=== PATIENT | female | born 1940 | race African-American/Black ===

== ENCOUNTER → 2016-11-09 | Outpatient (CLI) | payer MEDICARE ==
--- NOTE | 2016-11-09 15:49 | KCIC ---
PROCEDURE Neck sonogram. HISTORY Right neck lump. TECHNIQUE Sonographic imaging of the neck was performed. COMPARISON None. FINDINGS The right thyroid lobe measures 3.7 x 1.4 x 1.5 cm. The left thyroid lobe measures 3.6 x 1.3 x 1.4 cm. The isthmus measures 4.3 mm. There are multiple colloid cysts within the right thyroid lobe, the largest of which measures 9 mm in maximum dimension. There is a small complex cyst within the left thyroid lobe measuring 3 mm. There is a complex cyst within the isthmus measuring 4 mm. The right common carotid artery underlies the site of palpable concern. There is no suspicious sonographic finding within this location. IMPRESSION 1. Multiple benign-appearing cystic lesions within the thyroid, the largest of which measures 9 mm on the right. No suspicious thyroid lesion is seen and the thyroid is normal in size. 2. No suspicious finding within the right neck at the site of palpable concern. The right common carotid artery underlies this location. Further evaluation with a contrast-enhanced neck CT can be performed if there is concern for a sonographically occult lesion. Electronically signed by: Fadia Baltazar (Nov 09, 2016 15:47:42)
== END | disposition home or self-care (01) ==
LOC: KCIC US 14:52
PROVIDERS: ATTEND Internal Medicine
DX: R22.1 Localized swelling, mass and lump, neck (principal)
CPT/HCPCS: 76536

== ENCOUNTER → 2016-11-29 | Outpatient (CLI) | payer MEDICARE ==
[~2016-11-29] MED LIST: ATOR10TA60 PO; FLUT9.9S NS; FURO-69 PO; IOHEXOL 300 MG/ML 100ML VIAL. IV ONE; POTA10CA PO; TRIA1TAB2 PO
--- NOTE | 2016-11-29 09:52 | KCIC ---
CT soft tissue neck with contrast Indication: Lump right side of the neck. Axial imaging through the soft tissues of the neck was performed after the administration of intravenous contrast. A BB marker was placed at the area of palpable abnormality in the right neck. PQRS STATEMENT One or more of the following individualized dose reduction techniques were utilized for this study: 1.Automated exposure control. 2.Adjustment of the mA and/orkVaccording to patient size. 3.Use of iterative reconstruction technique. The visualized intracranial structures are unremarkable. The posterior nasopharynx is unremarkable. The oropharynx is unremarkable. The parapharyngeal fat planes are preserved. There is a large amount of artifact from the patient's dental hardware. The epiglottis and larynx are unremarkable. The thyroid demonstrates multiple tiny low densities. The submandibular and parotid glands are unremarkable. No definite cervical lymphadenopathy is seen. At the area of the BB marker this corresponds to the right sternocleidomastoid muscle. No underlying mass or fluid collection is identified at this location. The upper lung voss are clear. Impression: Thyroid nodules. CT soft tissue neck is otherwise unremarkable. Electronically signed by: Tyler Whatley MD (Nov 29, 2016 09:51:14)
== END | disposition home or self-care (01) ==
LOC: KCIC CT 08:22
PROVIDERS: ATTEND Internal Medicine
DX: R22.1 Localized swelling, mass and lump, neck (principal)
CPT/HCPCS: 70491; Q9967

== ENCOUNTER → 2017-06-06 | Outpatient (CLI) | payer MEDICARE ==
[~2017-06-06] MED LIST changes: -IOHEXOL 300 MG/ML 100ML VIAL. IV ONE; -POTA10CA PO; +POTASSIUM CHLO10 MEQ PO
[2017-06-06] MEDS: IOHEXOL 300 MG/ML 75 ML VIAL IV ONE (11:56)
--- NOTE | 2017-06-06 14:23 | RAD ---
CT neck Indication: Cervical lymphadenopathy. Technique: CT neck with 70 mL of Omnipaque 300 with multiplanar reformats. Comparison: Previous study from 11/29/2016 Findings: The visualized sections of the brain are within normal limits. Orbits are within normal limits. Mucus retention cyst or polyp is seen within right maxillary sinus. The nasopharynx and hypopharynx are within normal limits. There is a 6 mm low attenuating lesion within right palatine tonsil. The submandibular glands and parotid glands are within normal limits. No cervical enlarged lymph nodes. Multiple stable bilateral low attenuating thyroid nodules. The neck vasculature is patent. Mild bilateral carotid bulb calcifications. Visualized mediastinal structures are within normal limits. Aortic arch calcifications. The rest of the paranasal sinuses and mastoid air cells are clear. Visualized lungs are clear. Multilevel degenerative disc disease in the cervical spine. No suspicious bony lesions. 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 Impression: 1. No cervical adenopathy. 2. Low attenuating lesion (6 mm) in the right palatine tonsil relatively stable from previous study from 11/29/2016. Differential diagnosis includes small tonsillar abscess, aggregated lymphoid tissue or less likely malignancy. Clinically correlate. PQRS Compliance Statement: One or more of the following individualized dose reduction techniques were utilized for this examination: 1. Automated exposure control 2. Adjustment of the mA and/or kV according to patient size 3. Use of iterative reconstruction technique
== END | disposition home or self-care (01) ==
LOC: CT 10:53
PROVIDERS: ATTEND Internal Medicine
DX: M50.30 Other cervical disc degeneration, unspecified cervical region (principal); I10 Essential (primary) hypertension; R59.1 Generalized enlarged lymph nodes
CPT/HCPCS: 70491; Q9967

== ENCOUNTER → 2017-08-22 | Outpatient (CLI) | payer MEDICARE ==
--- NOTE | 2017-08-22 14:48 | KCIC ---
MRI Lumbar Spine without contrast History: Low back pain, right knee and leg pain Technique: Multiplanar, multi sequential noncontrast MR imaging was performed of the lumbar spine. Contrast: None Comparison: None Findings: There is some motion degradation. Lumbar vertebral body stature is preserved. There is grade 1 anterior spondylolisthesis at L4-5. There is negligible posterior subluxation L1 relative to L2. There is advanced degenerative disc disease at L5-S1, to lesser degree at L2-3 and L4-5 and minimally at L3-4 and L1-2. There is degenerative endplate change greatest at L2-3 and L5-S1. Conus terminates at T12-L1. There are anterior annular tears L3-4 and L1-2. There is mild lumbar levoscoliosis. L1-L2: There is broad posterior bulge, superimposed more focal protrusion/contained extrusion in the far left lateral recess on the order of 6 mm AP by 6 mm CC by 6 mm transverse. There is moderate narrowing of the far left lateral recess. There is mild buckling of the ligamentum flavum and facet hypertrophic change. Neural foramina are adequate. L2-L3: There is mild buckling of the ligamentum flavum and and dqky-ae-bovicvxv facet degenerative change greater on the right. There is very minimal disc osteophyte complex and shallow bulge somewhat greater in the far left lateral recess. Spinal canal is overall adequate. The neural foramina are not significantly narrowed. L3-L4: There is mild facet hypertrophic change and buckling of the ligamentum flavum greater on the right. There is minimal disc osteophyte complex and bulge. Spinal canal and foramina are overall adequate. L4-L5: There is moderate facet hypertrophic change and gosa-bi-cyaxxeus buckling of the ligamentum flavum. There is mild partial uncovering of the posterior aspect of the disc due to spondylolisthesis. Spinal canal and neural foramina are overall adequate. L5-S1: There is mild facet hypertrophic change. There is broad posterior disc osteophyte complex. Spinal canal is adequate. There is overall mild narrowing of the left neural foramen, right neural foramen not significantly narrowed. Impression: 1. There is more advanced degenerative disc disease L5-S1, to lesser degree at more superior levels. 2. There is moderate narrowing of the far left lateral recess at L1-2. 3. There is no significant lumbar neural foramina compromise. 4. There is multilevel facet degenerative change. There is grade 1 anterior spondylolisthesis L4-5. Electronically signed by: Denny Snyder MD (08/22/2017 2:45 PM) [facility]
== END | disposition home or self-care (01) ==
LOC: KCIC MRI 13:52
PROVIDERS: ATTEND Orthopaedic Surgery
DX: M43.16 Spondylolisthesis, lumbar region (principal); M51.37 Other intervertebral disc degeneration, lumbosacral region
CPT/HCPCS: 72148

== ENCOUNTER → 2017-12-14 | Outpatient (CLI) | payer MEDICARE ==
[~2017-12-14] MED LIST changes: -ATOR10TA60 PO; +CONTRAST GIVEN MC; -FLUT9.9S NS; -FURO-69 PO; -POTASSIUM CHLO10 MEQ PO; -TRIA1TAB2 PO
[2017-12-14 11:01] LABS: BLOOD UREA NITROGEN 17 mg/dL (7-20)
[2017-12-14 11:01] LABS: CREATININE 0.9 mg/dL (0.6-1.0); GFR 73.1
[2017-12-14] MEDS: IOHEXOL 300 MG/ML 100ML VIAL. IV (11:23)
== END | disposition home or self-care (01) ==
LOC: CT 10:02
DX: D10.4 Benign neoplasm of tonsil (principal)
CPT/HCPCS: 36415; 70491; 82565; 84520; Q9967

== ENCOUNTER 2018-04-11 15:30 | Inpatient (IN) | payer MEDICARE ==
[2018-04-11] MEDS ORDERED: CLINDAMYCIN 600MG PREMIX 50 ML IV (17:30)
[2018-04-11 18:05] LABS: ADD MAN DIFF? NO
[2018-04-11 18:07] LABS: BASO # 0.1 x10^3/uL (0.0-0.2); BASO % 1 % (0-3); EOS # 0.1 x10^3/uL (0.0-0.7); EOS % 2 % (0-3); HEMATOCRIT 39.1 % (36.0-47.0); LYMPH # 1.6 x10^3/uL (1.0-4.8); LYMPH % 17 % (24-48); MEAN CORPUSCULAR HEMOGLOBIN 29 pg (25-35); MEAN CORPUSCULAR HGB CONC 33 g/dL (31-37); MEAN CORPUSCULAR VOLUME 88 fL (79-100); MONO # 0.9 x10^3/uL (0.0-1.1); MONO % 10 % (0-9); NEUT # 6.6 x10^3uL (1.8-7.7); NEUT % 71 % (31-73); PLATELET COUNT 232 x10^3/uL (140-400); RED BLOOD COUNT 4.46 x10^6/uL (3.50-5.40); RED CELL DISTRIBUTION WIDTH 14.2 % (11.5-14.5); WHITE BLOOD COUNT 9.3 x10^3/uL (4.0-11.0)
[2018-04-11 18:18] LABS: ANION GAP 7 (6-14); BLOOD UREA NITROGEN 12 mg/dL (7-20); BUN/CREATININE RATIO 13 (6-20); CALCIUM 8.9 mg/dL (8.5-10.1); CARBON DIOXIDE 27 mmol/L (21-32); CHLORIDE 103 mmol/L (98-107); CREATININE 0.9 mg/dL (0.6-1.0); GFR 73.1; GLUCOSE 98 mg/dL (70-99); POTASSIUM 4.1 mmol/L (3.5-5.1); SODIUM 137 mmol/L (136-145)
[2018-04-11 18:24] LABS: ALBUMIN 3.1 g/dL (3.4-5.0); ALBUMIN/GLOBULIN RATIO 0.7 (1.0-1.7); ALK PHOS 89 U/L (46-116); ALT (SGPT) 23 U/L (14-59); AST (SGOT) 24 U/L (15-37); TOTAL BILIRUBIN 0.4 mg/dL (0.2-1.0); TOTAL PROTEIN 7.5 g/dL (6.4-8.2); URIC ACID 4.3 mg/dL (2.6-6.0)
[2018-04-11 19:11] LABS: SEDIMENTATION RATE 42 (0-25)
[2018-04-11] MEDS: CLINDAMYCIN 600MG PREMIX 50 ML IV (21:13)
[2018-04-12] MEDS: HYDROcodone/APAP 5/325MG 1 TAB TABLET PO (01:03)
[2018-04-12] MEDS: CLINDAMYCIN 600MG PREMIX 50 ML IV ×3 (05:07→22:22)
[2018-04-12] MEDS ORDERED: ACETAMINOPHEN 325 MG TABLET. PO (09:15)
[2018-04-12] MEDS: ENOXAPARIN 40 MG/0.4 ML SYRINGE. SQ (12:00)
[2018-04-12] MEDS ORDERED: TRIAMCINOLONE ACETONIDE 0.1% TOPICAL OINTMENT 15GM TUBE. TP (17:00)
[2018-04-12] MEDS ORDERED: BUTALB/APAP/CAFEIN 50/325/40MG TABLET. PO ×2 (17:15)
[2018-04-12] MEDS: TRIAMTERENE/HCTZ 37.5/25MG TABLET. PO (18:22)
[2018-04-12] MEDS: POTASSIUM CHLORIDE 10 MEQ TABLET.ER. PO (18:22)
[2018-04-12] MEDS: ASCORBIC ACID 500 MG TABLET PO (18:22)
[2018-04-12] MEDS: MULTIVITAMIN with MINERAL TABLET. PO (18:22)
[2018-04-12] MEDS: FLUTICASONE 50MCG/NASAL SPRAY 16GM BOTTLE. NS (18:23)
[2018-04-12] MEDS: LACTOBACILLUS RHAMNOSUS GG 1 CAPSULE. PO (21:15)
[2018-04-13 06:19] LABS: CHOLESTEROL 173 mg/dL (0-200); HDLC 44 mg/dL (40-60); LDLC 117 mg/dL (0-100); NON-HDL CHOLESTEROL 129 mg/dL (0-129); TRIGLYCERIDES 58 mg/dL (0-150); VLDLC 12 mg/dL (0-40)
[2018-04-13 06:20] LABS: CHOLESTEROL/HDL RATIO 3.9
[2018-04-13 06:27] LABS: THYROID STIM HORMONE (TSH) 2.583 uIU/mL (0.358-3.74)
[2018-04-13] MEDS: CLINDAMYCIN 600MG PREMIX 50 ML IV (06:30)
[2018-04-13] MEDS: POTASSIUM CHLORIDE 10 MEQ TABLET.ER. PO (08:35)
[2018-04-13] MEDS: LACTOBACILLUS RHAMNOSUS GG 1 CAPSULE. PO (08:35)
[2018-04-13] MEDS: ASCORBIC ACID 500 MG TABLET PO (08:35)
[2018-04-13] MEDS: TRIAMTERENE/HCTZ 37.5/25MG TABLET. PO (08:35)
[2018-04-13] MEDS: FLUTICASONE 50MCG/NASAL SPRAY 16GM BOTTLE. NS (08:36)
[2018-04-13] MEDS: MULTIVITAMIN with MINERAL TABLET. PO (08:36)
[2018-04-13] MEDS ORDERED: FLUTICASONE 50MCG/NASAL SPRAY 16GM BOTTLE. NS (09:00)
[2018-04-13] MEDS ORDERED: MULTIVITAMIN with MINERAL TABLET. PO (09:00)
[2018-04-13] MEDS ORDERED: ASCORBIC ACID 500 MG TABLET PO (09:00)
[2018-04-13] MEDS: ENOXAPARIN 40 MG/0.4 ML SYRINGE. SQ (11:56)
== END 2018-04-13 13:58 | disposition home or self-care (01) | DRG 603 ==
LOC: 5 SOUTH 15:30
DX: L03.116 Cellulitis of left lower limb (principal); I10 Essential (primary) hypertension; E78.5 Hyperlipidemia, unspecified; M19.90 Unspecified osteoarthritis, unspecified site; M10.9 Gout, unspecified; Z96.652 Presence of left artificial knee joint; Z79.899 Other long term (current) drug therapy
CPT/HCPCS: 36415; 73600; 73620; 73721; 80053; 80061; 84443; 84550; 85025; 85651; 93970; J3490

== ENCOUNTER 2018-06-10 11:40 | Emergency (ER) | payer MEDICARE ==
[~2018-06-10] VITALS: Ht 170.2 cm; Wt 70.3 kg
[~2018-06-10 11:40] MED LIST changes: +ASCO500C9 PO; +ATOR10TA60 PO; +BUTA1CAP57 PO; +CLIN300C8 PO; -CONTRAST GIVEN MC; +FLUT16SP NS; +FLUT9.9S NS; +FURO-69 PO; +MULT1TAB52 PO; +POTA10TA12 PO; +TRIA15OI TP; +TRIA1TAB2 PO
[2018-06-10] MEDS ORDERED: LIDOCAINE WITH 8.4% SOD BICARB 3 ML DISP.SYRIN. INJ ONE (12:00)
[2018-06-10] MEDS ORDERED: DIPHTH,PERTUSS(ACELL),TET TOX 0.5 ML DISP.SYRIN. VAX IM ONE (12:00)
--- NOTE | 2018-06-10 12:14 | PHYS DOC ---
Adult General Chief Complaint Chief Complaint: MECHANICAL FALL HPI HPI Patient is a 77 year old female who presents to be evaluated status post falling. Patient states she was walking on uneven surface of her driveway by to get the newspaper when she slipped and fell. Patient denies any loss of consciousness. She is complaining of mild pain to her head. She states she is on a baby aspirin every day. Denies any neck pain or back pain. Review of Systems Review of Systems Constitutional: Denies fever or chills [] Eyes: Denies change in visual acuity, redness, or eye pain [] HENT: Denies nasal congestion or sore throat [] Respiratory: Denies cough or shortness of breath [] Cardiovascular: No additional information not addressed in HPI [] GI: Denies abdominal pain, nausea, vomiting, bloody stools or diarrhea [] : Denies dysuria or hematuria [] Musculoskeletal: Denies back pain or joint pain [] Integument: Reports laceration to the right lateral eye. Neurologic: Reports head pain, denies focal weakness or sensory changes [] All other systems were reviewed and found to be within normal limits, except as documented in this note. Current Medications Current Medications Current Medications Medications (Trade) Dose Ordered Sig/[place] Start Time Stop Time Status Last Admin Dose Admin Diphtheria/ Tetanus/Acell Pertussis (Boostrix) 0.5 ml ONCE ONCE 06/10/18 12:00 06/10/18 12:01 DC 06/10/18 12:48 0.5 ML Lidocaine/Sodium Bicarbonate (Buffered Lidocaine 1%) 3 ml 1X ONCE 06/10/18 12:00 06/10/18 12:01 DC 06/10/18 12:51 3 ML Allergies Allergies Allergies Coded Allergies Type Severity Reaction Last Updated Verified codeine Allergy Intermediate HIVES 06/10/18 Yes Physical Exam Physical Exam Constitutional: Well developed, well nourished, no acute distress, non-toxic appearance. [] HENT: Normocephalic, atraumatic, bilateral external ears normal, oropharynx moist, no oral exudates, nose normal. [] Eyes: PERRLA, EOMI, conjunctiva normal, no discharge. [] Neck: Normal range of motion, no tenderness, supple, no stridor. [] Cardiovascular:Heart rate regular rhythm, no murmur [] Lungs & Thorax: Bilateral breath sounds clear to auscultation [] Abdomen: Bowel sounds normal, soft, no tenderness, no masses, no pulsatile masses. [] Skin: Warm, dry, abrasions noted to the right forehead, a tiny approximately 1 cm laceration noted on the right lateral eye skin fold with some soft tissue swelling around the right eyelid Back: No tenderness, no CVA tenderness. [] Extremities: No tenderness, no cyanosis, no clubbing, ROM intact, no edema. [] Neurologic: Alert and oriented X 3, normal motor function, normal sensory function, no focal deficits noted. Cranial nerves II through XII intact Psychologic: Affect normal, judgement normal, mood normal. [] Current Patient Data Vital Signs Vital Signs Date Time Temp Pulse Resp B/P (MAP) Pulse Ox O2 Delivery O2 Flow Rate FiO2 06/10/18 13:30 65 20 99 06/10/18 11:40 98.4 130/72 (91) Room Air 98.4 EKG EKG [] Radiology/Procedures Radiology/Procedures []PROCEDURE: CT HEAD WO CONTRAST EXAM: CT HEAD WITHOUT CONTRAST. HISTORY: Fall with head and facial trauma. TECHNIQUE: Computed tomography of the head was performed without intravenous contrast. COMPARISON: 04/20/2012. FINDINGS: There is no intracranial hemorrhage. Hypoattenuation within the periventricular white matter indicates mild chronic microangiopathic change. Prominence of the lateral ventricles and hemispheric sulci indicates moderate atrophy. The visualized paranasal sinuses appear clear. There are changes of bilateral cataract surgery. There is soft tissue swelling along the lateral aspect of the right orbit and cheek. There is no evidence of intraorbital injury. The temporal bones are unremarkable. The calvarium reveals no suspicious lesions. IMPRESSION: 1. No acute intracranial findings. Soft tissue swelling right cheek and eyelids. 2. Moderate atrophy and mild chronic microangiopathic white matter change. *One or more of the following individualized dose reduction techniques were utilized for this examination: 1. Automated exposure control. 2. Adjustment of the mA and/or kV according to patient size. 3. Use of iterative reconstruction technique. Electronically signed by: Nicolette Barth MD (06/10/2018 12:38 PM) [facility] DICTATED and SIGNED BY: STEPHEN BARTH MD DATE: 06/10/18 1234 Laceration/Wound Repair Wound Location: Right upper eyelid Wound's Depth, Shape: Vertical Wound Length (cm): approx. 1 cm Wound Explored: clean Irrigated w/ Saline (ccs): 30 Betadine Prep?: y Anesthesia: 0.5 cc of buffered lidocaine Wound Repaired With: 6.0 dissolvable gut Suture Type: 3 interrupted sutures Progress : Wound was left open to air Course & Med Decision Making Course & Med Decision Making Pertinent Labs and Imaging studies reviewed. (See chart for details) This is a 77-year-old female patient presenting to the ED today to be evaluated status post falling. Patient has a laceration approximately 1 cm long on the lateral aspect of the right eye skin fold. Laceration was repaired by me as noted in procedures. Tetanus updated. CT of the head is negative. Patient was discharged to home, wound care instructions and return precautions provided. Follow-up with PCP next week. Dragon Disclaimer Dragon Disclaimer This electronic medical record was generated, in whole or in part, using a voice recognition dictation system. Departure Departure Impression: Primary Impression: Fall from standing Additional Impressions: Forehead contusion Facial laceration Disposition: 01 HOME, SELF-CARE Condition: STABLE Referrals: JOSE WU MD (PCP) Follow-up with your doctor in 1-2 weeks Patient Instructions: Contusion, [id number]-Mque, Facial Laceration, Yevi-ra-Smrb , Fall Prevention and Home Safety Additional Instructions: You were evaluated in the emergency room after falling. Your CT of the head is negative for any acute findings. Your laceration was closed with dissolvable sutures. Keep the laceration site clean and dry. You can apply Neosporin over the laceration site twice a 41 week. Monitor the area for any worsening condition including but not limited to increased redness, warmth, yellow drainage and come back to the ED if they occur or see your doctor. Problem Qualifiers Primary Impression: Fall from standing Encounter type: initial encounter Qualified Codes: W19.XXXA - Unspecified fall, initial encounter Additional Impressions: Forehead contusion Encounter type: initial encounter Qualified Codes: S00.83XA - Contusion of other part of head, initial encounter Facial laceration Encounter type: initial encounter Qualified Codes: S01.81XA - Laceration without foreign body of other part of head, initial encounter LORNE OMER HOUSECLEANER Jun 10, 2018 12:14
--- NOTE | 2018-06-10 12:41 | RAD ---
EXAM: CT HEAD WITHOUT CONTRAST. HISTORY: Fall with head and facial trauma. TECHNIQUE: Computed tomography of the head was performed without intravenous contrast. COMPARISON: 04/20/2012. FINDINGS: There is no intracranial hemorrhage. Hypoattenuation within the periventricular white matter indicates mild chronic microangiopathic change. Prominence of the lateral ventricles and hemispheric sulci indicates moderate atrophy. The visualized paranasal sinuses appear clear. There are changes of bilateral cataract surgery. There is soft tissue swelling along the lateral aspect of the right orbit and cheek. There is no evidence of intraorbital injury. The temporal bones are unremarkable. The calvarium reveals no suspicious lesions. IMPRESSION: 1. No acute intracranial findings. Soft tissue swelling right cheek and eyelids. 2. Moderate atrophy and mild chronic microangiopathic white matter change. *One or more of the following individualized dose reduction techniques were utilized for this examination: 1. Automated exposure control. 2. Adjustment of the mA and/or kV according to patient size. 3. Use of iterative reconstruction technique. Electronically signed by: Nicolette Barth MD (06/10/2018 12:38 PM) [facility]
[2018-06-10 13:30] VITALS: BP 180/79
== END 2018-06-10 13:35 | disposition home or self-care (01) ==
LOC: ER 11:40
DX: S01.111A Laceration without foreign body of right eyelid and periocular area, initial encounter (principal); S01.81XA Laceration without foreign body of other part of head, initial encounter; Z88.5 Allergy status to narcotic agent; W01.0XXA Fall on same level from slipping, tripping and stumbling without subsequent striking against object, initial encounter; Y93.89 Activity, other specified; Y92.89 Other specified places as the place of occurrence of the external cause; Y99.8 Other external cause status
CPT/HCPCS: 12011; 70450; 90471; 90715; 99284-25

== ENCOUNTER → 2018-06-20 | Outpatient (CLI) | payer MEDICARE ==
[2018-06-10 13:30] VITALS: BP 180/79
--- NOTE | 2018-06-20 11:04 | CARD ---
MR#: [id number] Date of Study: 06/20/2018 Ordering Physician: JASKARAN MARTINEZ, Referring Physician: JASKARAN MARTINEZ Tech: Rosalina Decker [facility] APPROVED REPORT EXAM: Two-dimensional and M-mode echocardiogram with Doppler and color Doppler. Other Information Quality : Good Rhythm : NSR INDICATION Edema 2D DIMENSIONS RVDd2.4 (2.9-3.5cm)Left Atrium(2D)3.6 (1.6-4.0cm) IVSd1.1 (0.7-1.1cm)Aortic Root(2D)2.8 (2.0-3.7cm) LVDd3.6 (3.9-5.9cm)LVOT Diameter1.8 (1.8-2.4cm) PWd0.8 (0.7-1.1cm)IVSs1.2 (0.8-1.2cm) LVDs2.1 (2.5-4.0cm)FS (%) 41.9 % PWs0.9 (0.8-1.2cm)SV39.3 ml LVEF(%)73.9 (>50%) M-Mode DIMENSIONS Left Atrium(MM)3.80 (2.5-4.0cm)Aortic Root2.64 (2.2-3.7cm) Aortic Valve AoV Peak Otis.123.4cm/sAoV VTI23.6cm AO Peak GR.6.1mmHgLVOT Peak Otis.101.4cm/s LVOT VTI 22.59cmAO Mean GR.3mmHg VIVIEN (VMAX)1.35qd4VDG (VTI)2.50cm2 Mitral Valve MV E Lzufuovr01.7cm/sMV DECEL [id number] MV A Tdhoydmn42.8cm/sMV KJP46pp E/A Ratio0.7MVA (PHT)2.71cm2 TDI E/Lateral E'7.4E/Medial E'10.8 Tricuspid Valve TR P. Gqewkvhl818cl/sRAP [id number] TR Peak Gr.14snPyWIPN84zkVv Pulmonary Vein S1 Zmpfoccb87.9cm/sD2 Raxktjng12.5cm/s PVa [id number] LEFT VENTRICLE The left ventricle is normal size. There is normal left ventricular wall thickness. The left ventricu lar systolic function is normal. The Ejection Fraction is 65-70%. There is normal LV segmental wall m otion. Transmitral Doppler flow pattern is Grade I-abnormal relaxation pattern. RIGHT VENTRICLE The right ventricle is normal size. There is normal right ventricular wall thickness. The right ventr icular systolic function is normal. ATRIA The left atrium size is normal. The right atrium size is normal. The interatrial septum is intact wit h no evidence for an atrial septal defect or patent foramen ovale as noted on 2-D or Doppler imaging. AORTIC VALVE The aortic valve is thickened but opens well. The aortic valve is trileaflet. Doppler and Color Flow revealed no significant aortic regurgitation. There is no significant aortic valvular stenosis. MITRAL VALVE The mitral valve is normal in structure and function. There is no evidence of mitral valve prolapse. There is no mitral valve stenosis. Doppler and Color Flow revealed no mitral valve regurgitation note d. TRICUSPID VALVE The tricuspid valve is normal in structure and function. Doppler and Color Flow revealed trace tricus pid regurgitation. The PA pressure was estimated at 17 mmHg. There is no tricuspid valve prolapse or vegetation. There is no tricuspid valve stenosis. PULMONIC VALVE The pulmonary valve is normal in structure and function. Doppler and Color Flow revealed trace pulmon ic valvular regurgitation. There is no pulmonic valvular stenosis. GREAT VESSELS The aortic root is normal in size. The ascending aorta is normal in size. PERICARDIAL EFFUSION There is no evidence of significant pericardial effusion. Critical Notification Critical Value: No <Conclusion> The left ventricular systolic function is normal. The Ejection Fraction is 65-70%. There is normal LV segmental wall motion. Transmitral Doppler flow pattern is Grade I-abnormal relaxation pattern. Doppler and Color Flow revealed trace tricuspid regurgitation. The PA pressure was estimated at 17 mmHg. There is no evidence of significant pericardial effusion. Signed by : Jaskaran Martinez, Electronically Approved : 06/20/2018 11:02:50
--- NOTE | 2018-06-21 04:55 | RAD ---
MR#: [id number] Date of Study: 06/20/2018 Ordering Physician: JASKARAN OROURKE, Referring Physician: JASKARAN OROURKE, Tech: DENAE Fleming, RDMS, RTR APPROVED REPORT Patient Location : OUT-PATIENT Indications Lower Extremity Pain : Findings Grayscale images of the bilateral saphenofemoral junctions on limited imaging do not reveal any evide nce of thrombus. The right great saphenous vein measures 4.9 mm and does not show any evidence of reflux. The left gre at saphenous vein measures 4.8 mm and does not show any evidence of reflux. The bilateral lesser saphenous veins do not show any evidence of reflux. 2 incidental groin lymph nodes are noted in the left groin area with largest measuring 3.0 x 0.9 x 1. 6 cm Critical Notification Critical Value: No <Conclusion> 1. Negative for reflux in the bilateral greater and lesser saphenous veins 2. Incidental finding of two large (> 1cm) lymph nodes - likely inflammatory. Recommend clinical kymberly elation. Signed by : Zach Noriega, Electronically Approved : 06/21/2018 04:54:35
--- NOTE | 2018-06-21 04:57 | RAD ---
MR#: [id number] Date of Study: 06/20/2018 Ordering Physician: JASKARAN OROURKE, Referring Physician: JASKARAN OROURKE, Tech: DENAE Fleming, RDMS, RTR APPROVED REPORT Patient Location: OUT-PATIENT Indications Rest Pain: Risk Factors Hypertension VELOCITY AND DOPPLER WAVEFORM ANALYSIS RIGHT cm/secWaveformSeverity LEFT cm/secWaveform Severity pCFA 135.7BiphasicpCFA 113.4Biphasic Prof Fem Art. 90.9Prof Fem Art. 93.4 Fem Art Prox. 90.1BiphasicFem Art Prox. 104.1Biphasic Fem Art Mid. 95.9BiphasicFem Art Mid. 91.7Triphasic Fem Art Dist. 75.2BiphasicFem Art Dist. 70.1Triphasic Pop Art(AK) Pop Art(AK) Pop Art(Fossa) 70.1BiphasicPop Art(AK) 97.0Triphasic BLUE CRABBER Dist. 60.4BiphasicPTA Dist. 93.8Monophasic Per Art Dist.64.3BiphasicPer Art Dist.79.8Monophasic JOSÉ MIGULE Dist. 56.8BiphasicATA Dist. 59.6Monophasic DPA 71BiphasicDPA 41Monophasic Findings Grayscale images of the bilateral lower extremity arterial vessels reveal moderate diffuse atheroscle rotic plaque. On the right side spectral waveforms and color Doppler do not demonstrate any focal stenosis. There a re mostly biphasic waveforms throughout the arterial tree. On the left side there are mostly biphasic waveforms in the common femoral to the popliteal segment w ith normal velocities. Velocities below the knee on the left side are within normal limits but in a m onophasic wave pattern suggestive of diffuse small vessel disease but no focal high-grade stenosis. Critical Notification Critical Value: No <Conclusion> 1. No focal high-grade stenosis is identified in the bilateral lower extremity arterial vessels. 2. Bilateral three-vessel runoff below the knee with adequate velocities. Signed by : Zach Noriega, Electronically Approved : 06/21/2018 04:57:22
== END | disposition home or self-care (01) ==
LOC: ECHO 10:13
PROVIDERS: ATTEND Internal Medicine Cardiovascular Disease
DX: I70.293 Other atherosclerosis of native arteries of extremities, bilateral legs (principal); I10 Essential (primary) hypertension
CPT/HCPCS: 93306; 93925; 93970

== ENCOUNTER 2018-09-18 02:00 | Emergency (ER) | payer MEDICARE ==
[~2018-09-18] VITALS: Ht 167.6 cm; Wt 68.5 kg
[2018-09-18] MEDS ORDERED: cloNIDine HCL 0.1 MG TABLET PO ONE (02:15)
[2018-09-18 02:16] LABS: BASO # 0.1 x10^3/uL (0.0-0.2); BASO % 1 % (0-3); EOS # 0.1 x10^3/uL (0.0-0.7); EOS % 2 % (0-3); HEMATOCRIT 43.3 % (36.0-47.0); HEMOGLOBIN 14.8 g/dL (12.0-15.5); LYMPH # 2.1 x10^3/uL (1.0-4.8); LYMPH % 29 % (24-48); MEAN CORPUSCULAR HEMOGLOBIN 30 pg (25-35); MEAN CORPUSCULAR HGB CONC 34 g/dL (31-37); MEAN CORPUSCULAR VOLUME 88 fL (79-100); MONO # 0.7 x10^3/uL (0.0-1.1); MONO % 10 % (0-9); NEUT # 4.2 x10^3uL (1.8-7.7); NEUT % 58 % (31-73); PLATELET COUNT 198 x10^3/uL (140-400); RED CELL DISTRIBUTION WIDTH 14.3 % (11.5-14.5); WHITE BLOOD COUNT 7.3 x10^3/uL (4.0-11.0)
[2018-09-18 02:25] LABS: CALCIUM 9.3 mg/dL (8.5-10.1); GFR 64.7; POTASSIUM 3.9 mmol/L (3.5-5.1)
[2018-09-18 02:31] LABS: ALBUMIN 3.5 g/dL (3.4-5.0); ALBUMIN/GLOBULIN RATIO 0.8 (1.0-1.7); TOTAL BILIRUBIN 0.3 mg/dL (0.2-1.0); TOTAL PROTEIN 7.7 g/dL (6.4-8.2)
[2018-09-18 03:23] LABS: BILIRUBIN,URINE NEGATIVE (NEG); CLARITY,URINE CLEAR; COLOR,URINE YELLOW; PH,URINE 7.5
[2018-09-18 03:24] LABS: BACTERIA,URINE 0 /HPF (0-FEW); NITRITE,URINE NEGATIVE (NEG); PROTEIN,URINE NEGATIVE (NEG-TRACE); RBC,URINE 0 /HPF (0-2); SQUAMOUS EPITHELIAL CELL,UR FEW /LPF; UROBILINOGEN,URINE 0.2 mg/dL (0.2 mg/dL); WBC,URINE OCC /HPF (0-4)
--- NOTE | 2018-09-18 03:28 | RAD ---
INDICATION: severe headache; hx High blood pressure COMPARISON: June 10, 2018 TECHNIQUE: Axial CT images obtained through the head without intravenous contrast. One or more of the following individualized dose reduction techniques were utilized for this examination: 1. Automated exposure control; 2. Adjustment of the mA and/or kV according to patient size; 3. Use of iterative reconstruction technique. FINDINGS: No intracranial hemorrhage. No midline shift. Basal cisterns patents. Ventricles and sulci are globally prominent. No acute osseous abnormality. Orbits and paranasal sinuses unremarkable. Scattered foci of low attenuation within the white matter. IMPRESSION: 1. No acute intracranial hemorrhage. 2. Scattered regions of low attenuation within the white matter. Non-specific in nature but frequently secondary to chronic small vessel ischemic disease. 3. Prominence of ventricles and sulci which is frequently secondary to age related volume loss. Electronically signed by: Fer Bowie MD (09/18/2018 3:23 AM) [facility]
--- NOTE | 2018-09-18 03:49 | PHYS DOC ---
Past Medical History Past Medical History: Hypertension Past Surgical History: Hysterectomy, Knee Replacement Additional Past Surgical Histo: left knee Alcohol Use: None Drug Use: None Adult General Chief Complaint Chief Complaint: DIZZY/LIGHT HEADED HPI HPI Patient is a 77-year-old female who presents with complaint of pressure in her head and dizziness. When asked to describe the pressure, she states it feels like her head is going to explode but states that there is no actual pain. She states that he just feels like pressure. She states that the dizziness that started earlier in the evening and she took a meclizine for but states that she still has some dizziness. Patient also has elevated blood pressure and states that she did not take her blood pressure medication tonight. She denies any chest pain or shortness of breath. She denies any sinus pain or drainage. She denies any fever. Patient states that symptoms of dizziness are worsened when she stands. Review of Systems Review of Systems Constitutional: Denies fever or chills [] Eyes: Denies change in visual acuity, redness, or eye pain [] HENT: Denies nasal congestion or sore throat [] Respiratory: Denies cough or shortness of breath [] Cardiovascular: No additional information not addressed in HPI [] GI: Denies abdominal pain, nausea, vomiting or diarrhea [] Neurologic: Complains of head pressure/pain without focal weakness or sensory changes [] All other systems were reviewed and found to be within normal limits, except as documented in this note. Current Medications Current Medications Current Medications Medications (Trade) Dose Ordered Sig/[place] Start Time Stop Time Status Last Admin Dose Admin Clonidine HCl (Catapres) 0.2 mg 1X ONCE 09/18/18 02:15 09/18/18 02:16 DC 09/18/18 02:18 0.2 MG Ketorolac Tromethamine (Toradol 15mg Vial) 15 mg 1X ONCE 09/18/18 04:00 09/18/18 04:04 DC 09/18/18 04:20 15 MG Lorazepam (Ativan) 0.5 mg 1X ONCE 09/18/18 04:00 09/18/18 04:04 DC 09/18/18 04:20 0.5 MG Meclizine HCl (Antivert) 25 mg 1X ONCE 09/18/18 04:00 09/18/18 04:04 DC 09/18/18 04:19 25 MG Ondansetron HCl (Zofran) 4 mg 1X ONCE 09/18/18 04:00 09/18/18 04:04 DC 09/18/18 04:20 4 MG Allergies Allergies Allergies Coded Allergies Type Severity Reaction Last Updated Verified codeine Allergy Intermediate HIVES 06/10/18 Yes Physical Exam Physical Exam Constitutional: Well developed, well nourished, no acute distress, non-toxic appearance. [] HENT: Normocephalic, atraumatic, bilateral external ears normal, oropharynx moist, no oral exudates, nose normal. [] Eyes: PERRLA, EOMI, conjunctiva normal, no discharge. [] Neck: Normal range of motion, no tenderness, supple, no stridor. [] Cardiovascular: Regular rate and rhythm. [] Lungs & Thorax: Bilateral breath sounds clear to auscultation [] Abdomen: Bowel sounds normal, soft, no tenderness. [] Skin: Warm, dry, no erythema, no rash. [] Extremities: No tenderness, no cyanosis, no clubbing, ROM intact, no edema. [] Neurologic: Awake and alert, no focal deficits noted. [] Current Patient Data Vital Signs Vital Signs Date Time Temp Pulse Resp B/P (MAP) Pulse Ox O2 Delivery O2 Flow Rate FiO2 09/18/18 04:37 55 18 99 09/18/18 02:18 178/79 09/18/18 02:00 97.4 Room Air 97.4 Lab Values Laboratory Tests Test 09/18/18 02:05 09/18/18 03:00 White Blood Count 7.3 x10^3/uL (4.0-11.0) Red Blood Count 4.90 x10^6/uL (3.50-5.40) Hemoglobin 14.8 g/dL (12.0-15.5) Hematocrit 43.3 % (36.0-47.0) Mean Corpuscular Volume 88 fL (79-100) Mean Corpuscular Hemoglobin 30 pg (25-35) Mean Corpuscular Hemoglobin Concent 34 g/dL (31-37) Red Cell Distribution Width 14.3 % (11.5-14.5) Platelet Count 198 x10^3/uL (140-400) Neutrophils (%) (Auto) 58 % (31-73) Lymphocytes (%) (Auto) 29 % (24-48) Monocytes (%) (Auto) 10 % (0-9) H Eosinophils (%) (Auto) 2 % (0-3) Basophils (%) (Auto) 1 % (0-3) Neutrophils # (Auto) 4.2 x10^3uL (1.8-7.7) Lymphocytes # (Auto) 2.1 x10^3/uL (1.0-4.8) Monocytes # (Auto) 0.7 x10^3/uL (0.0-1.1) Eosinophils # (Auto) 0.1 x10^3/uL (0.0-0.7) Basophils # (Auto) 0.1 x10^3/uL (0.0-0.2) Sodium Level 140 mmol/L (136-145) Potassium Level 3.9 mmol/L (3.5-5.1) Chloride Level 104 mmol/L (98-107) Carbon Dioxide Level 28 mmol/L (21-32) Anion Gap 8 (6-14) Blood Urea Nitrogen 14 mg/dL (7-20) Creatinine 1.0 mg/dL (0.6-1.0) Estimated GFR (Cockcroft-Gault) 64.7 BUN/Creatinine Ratio 14 (6-20) Glucose Level 98 mg/dL (70-99) Calcium Level 9.3 mg/dL (8.5-10.1) Magnesium Level 2.0 mg/dL (1.8-2.4) Total Bilirubin 0.3 mg/dL (0.2-1.0) Aspartate Amino Transferase (AST) 23 U/L (15-37) Alanine Aminotransferase (ALT) 23 U/L (14-59) Alkaline Phosphatase 82 U/L (46-116) Total Protein 7.7 g/dL (6.4-8.2) Albumin 3.5 g/dL (3.4-5.0) Albumin/Globulin Ratio 0.8 (1.0-1.7) L Urine Collection Type Unknown Urine Color Yellow Urine Clarity Clear Urine pH 7.5 Urine Specific [place] 1.015 Urine Protein Negative mg/dL (NEG-TRACE) Urine Glucose (UA) Negative mg/dL (NEG) Urine Ketones (Stick) Negative mg/dL (NEG) Urine Blood Negative (NEG) Urine Nitrite Negative (NEG) Urine Bilirubin Negative (NEG) Urine Urobilinogen Dipstick 0.2 mg/dL (0.2 mg/dL) Urine Leukocyte Esterase Trace (NEG) Urine RBC 0 /HPF (0-2) Urine WBC Occ /HPF (0-4) Urine Squamous Epithelial Cells Few /LPF Urine Bacteria 0 /HPF (0-FEW) Urine Mucus Mod /LPF Laboratory Tests 09/18/18 02:05 Laboratory Tests 09/18/18 02:05 EKG EKG [] Interpretation Time: EKG demonstrates normal sinus rhythm with rate of 60. Radiology/Procedures Radiology/Procedures [] Impressions: PROCEDURE: CT HEAD WO CONTRAST INDICATION: severe headache; hx High blood pressure COMPARISON: June 10, 2018 TECHNIQUE: Axial CT images obtained through the head without intravenous contrast. One or more of the following individualized dose reduction techniques were utilized for this examination: 1. Automated exposure control; 2. Adjustment of the mA and/or kV according to patient size; 3. Use of iterative reconstruction technique. FINDINGS: No intracranial hemorrhage. No midline shift. Basal cisterns patents. Ventricles and sulci are globally prominent. No acute osseous abnormality. Orbits and paranasal sinuses unremarkable. Scattered foci of low attenuation within the white matter. IMPRESSION: 1. No acute intracranial hemorrhage. 2. Scattered regions of low attenuation within the white matter. Non-specific in nature but frequently secondary to chronic small vessel ischemic disease. 3. Prominence of ventricles and sulci which is frequently secondary to age related volume loss. Electronically signed by: Fer Bowie MD (09/18/2018 3:23 AM) [id number] Course & Med Decision Making Course & Med Decision Making Pertinent Labs and Imaging studies reviewed. (See chart for details) [] Dragon Disclaimer Dragon Disclaimer This electronic medical record was generated, in whole or in part, using a voice recognition dictation system. Departure Departure Impression: Primary Impression: Vertigo Additional Impression: Hypertension Disposition: 01 HOME, SELF-CARE Condition: STABLE Referrals: JOSE WU MD (PCP) Patient Instructions: Hypertension, Vertigo Problem Qualifiers Additional Impression: Hypertension Hypertension type: essential hypertension Qualified Codes: I10 - Essential ( primary) hypertension ARMOND RIVERA Jr. DO Sep 18, 2018 03:49
[2018-09-18] MEDS ORDERED: KETOROLAC 15 MG/ML VIAL. IV ONE (04:00)
[2018-09-18] MEDS ORDERED: ONDANSETRON PF 4 MG/2 ML VIAL. IV ONE (04:00)
[2018-09-18] MEDS ORDERED: MECLIZINE HCL 12.5 MG TABLET. PO ONE (04:00)
[2018-09-18 05:00] VITALS: BP 90/54
--- NOTE | 2018-09-18 06:51 | EKG ---
[facility] [address] [place] [address] Test Date: 2018-09-18 Test Time: 02:12:46 Pat Name: ZACKERY SAUNDERS Department: Room: Gender: F Administrative Services Assistant: : 1940 Requested By: ARMOND RIVERA Order Number: [id number] Reading MD: Zach Noriega MD Measurements Intervals [place] Rate: 60 P: 31 LA: 154 QRS: -8 QRSD: 72 T: 14 QT: 452 QTc: 452 Interpretive Statements SINUS RHYTHM Electronically Signed On 09-18-2018 12:33:11 [facility] by Zach Noriega MD
== END 2018-09-18 05:40 | disposition home or self-care (01) ==
LOC: ER 02:00
DX: R42 Dizziness and giddiness (principal); I10 Essential (primary) hypertension; R51 Headache; Z88.5 Allergy status to narcotic agent
CPT/HCPCS: 36415; 70450; 80053; 81001; 83735; 85025; 87086; 93005; 96374; 96375; 99284; J1885; J2060; J2405; J8597

== ENCOUNTER → 2019-01-16 | Outpatient (CLI) | payer MEDICARE ==
--- NOTE | 2019-01-16 08:19 | RAD ---
Right lower extremity venous Doppler dated 01/16/2019. No comparison available. CLINICAL INDICATION: Edema. FINDINGS: Grayscale, color-flow and spectral waveform analysis performed to include the deep venous system of the right lower extremity. Normal compressibility, phasicity and augmentation of flow throughout. No filling defects are seen. IMPRESSION: No evidence of right lower extremity deep vein thrombosis. Electronically signed by: Hero Doe MD (01/16/2019 8:16 AM) [id number]
== END | disposition home or self-care (01) ==
LOC: US 07:19
PROVIDERS: ATTEND Internal Medicine
DX: R60.0 Localized edema (principal)
CPT/HCPCS: 93971

== ENCOUNTER → 2019-01-23 | Outpatient (CLI) | payer MEDICARE ==
--- NOTE | 2019-01-23 14:58 | RAD ---
FOOT RIGHT 3V History: Hairline fracture, right foot pain for one month Comparison: None. Findings: 3 views of the right foot are submitted. Precise site of pain is not indicated. There is degenerative change of the first metatarsal-phalangeal joint and the first interphalangeal joint. No recent fracture is identified. No aggressive bone destruction is identified. There is mild degenerative change of the proximal and mid foot as well as tibiotalar articulation. There are small dorsal and plantar calcaneal enthesophytes. There is some vascular calcification, also some soft tissue phleboliths of the visualized right lower extremity. Impression: 1. There is degenerative change. No recent fracture identified by radiographs. Electronically signed by: Denny Snyder MD (01/23/2019 2:55 PM) [facility]
== END | disposition home or self-care (01) ==
LOC: RAD 13:39
PROVIDERS: ATTEND Internal Medicine
DX: M19.071 Primary osteoarthritis, right ankle and foot (principal); I87.8 Other specified disorders of veins
CPT/HCPCS: 73630

== ENCOUNTER → 2020-10-27 | Outpatient (CLI) | payer MEDICARE ==
[~2020-10-27] MED LIST changes: -CLIN300C8 PO; +CLIN300C9 PO; +CONTRAST GIVEN. MC PRN; +IOHEXOL 240 MG/ML 50ML VIAL. PO ONE; +IOHEXOL 300 MG/ML 100ML VIAL. IV ONE; +MULT-445 PO; -MULT1TAB52 PO
--- NOTE | 2020-10-27 16:49 | RAD ---
CT ABDOMEN+PELVIS W History: Reason: RLQ ABD PAIN WEIGHT LOSS / Spl. Instructions: IV OMNI 300 75 MLS AND PO OMNI 240 50 MLS / History: Comparison: None. Technique: CT of the abdomen and pelvis with oral and intravenous contrast. Findings: The lung bases are clear. Small pericardial fluid collection anterior inferiorly. No pleural effusion Unremarkable liver, gallbladder, bile ducts, pancreas, spleen, adrenals, and kidneys. Small hiatal hernia. Contrast opacifies the small bowel to the mid ileum without dilation. There is a right inguinal hernia containing unopacified loops of small bowel and a left inguinal hernia contain ing opacified loops of small bowel. The appendix is normal. Stool is present throughout the colon. No colonic wall thickening or significant diverticular disease. Mild aortoiliac calcification without aneurysm. The bladder is unremarkable. Status post hysterectomy . No abdominal pelvic adenopathy. Advanced degenerative changes of the lumbar spine with mild retroli sthesis of L1 on L2 and mild anterolisthesis of L4 and L5. Multilevel disc space narrowing and facet hypertrophy. Impression: 1. Bilateral inguinal hernias containing loops of small bowel no evidence of obstruction or strandin g angulation. Correlate with clinical exam. 2. Well-formed stool throughout the colon to the rectum. 3. Advanced degenerative changes of the lumbar spine. ------ Exposure: One or more of the following individualized dose reduction techniques were utilized for thi s examination: 1. Automated exposure control 2. Adjustment of the mA and/or kV according to patient size 3. Use of iterative reconstruction technique. Electronically signed by: Dawson Tavares MD (10/27/2020 4:46 PM) [facility]
== END ==
LOC: CT 08:14
PROVIDERS: ATTEND Internal Medicine
DX: K40.90 Unilateral inguinal hernia, without obstruction or gangrene, not specified as recurrent (principal); M47.016 Anterior spinal artery compression syndromes, lumbar region
CPT/HCPCS: 74177; Q9967

== ENCOUNTER → 2021-03-17 | Outpatient (CLI) | payer MEDICARE ==
[~2021-03-17] MED LIST changes: -CONTRAST GIVEN. MC PRN; -IOHEXOL 240 MG/ML 50ML VIAL. PO ONE; -IOHEXOL 300 MG/ML 100ML VIAL. IV ONE
--- NOTE | 2021-03-17 12:36 | RAD ---
EXAM: Lumbar spine MRI without contrast. HISTORY: Radiculopathy. TECHNIQUE: Multiplanar, multisequence magnetic resonance imaging of the lumbar spine was performed wi thout contrast. COMPARISON: None. FINDINGS: There is lumbar levoscoliosis centered at L3. There is grade 1 anterolisthesis of L4 on L5, measuring 6 mm. There is 3 mm retrolisthesis of L1 on L2 and 2 mm retrolisthesis of T12 on L1. There is degenerative endplate remodeling with disc space narrowing, osteophytosis and Schmorl's node form ation primarily along the right aspect of L2-L3 and left aspect of L5-S1. This corresponds with level s of maximum sclerotic concavity. There are osseous hemangiomas. There is no suspicious osseous lesio n. There is no acute or subacute fracture. The conus terminates at T12-L1. At L1-L2, there is a right paracentral to extra foraminal disc protrusion and slight superior foramin al to extra foraminal extrusion superimposed on a disc bulge and endplate osteophytosis. There is mil d bilateral facet arthropathy. There is mild retrolisthesis. There is moderate bilateral foraminal st enosis. There is [id number] central canal stenosis. At L2-L3, there is a right lateral predominant disc bulge and endplate osteophytosis. There is mild b ilateral facet arthropathy. There is no significant stenosis. At L3-L4, there is a disc bulge and endplate remodeling. There is moderate bilateral facet arthropath y. There is mild central canal stenosis. At L4-L5, there is a disc bulge and endplate remodeling. There is moderate bilateral facet arthropath y. There is mild central canal stenosis. At L5-S1, there is a broad-based left paracentral to foraminal disc protrusion and slight superior fo raminal extrusion superimposed on a left lateral predominant disc bulge and endplate osteophytosis. T here is moderate left facet arthropathy. There is mild left foraminal stenosis with abutment the exit ing left L5 nerve root. IMPRESSION: 1. Multilevel degenerative change involving the lumbar spine, described in detail above. This is asso ciated with moderate neural foraminal and mild to moderate central canal stenosis at L1-L2, mild cent ral canal stenosis at L3-L4, mild central canal stenosis at L4-L5, and mild left foraminal stenosis w ith abutment the exiting left L5 nerve root at L5-S1. 2. Lumbar scoliosis and multilevel degenerative listhesis. Electronically signed by: Fadia Baltazar MD (03/17/2021 12:34 PM) [id number]
== END ==
LOC: MRI 11:25
PROVIDERS: ATTEND Orthopaedic Surgery
DX: M47.817 Spondylosis without myelopathy or radiculopathy, lumbosacral region (principal); M51.27 Other intervertebral disc displacement, lumbosacral region; M48.07 Spinal stenosis, lumbosacral region; M41.86 Other forms of scoliosis, lumbar region; M43.15 Spondylolisthesis, thoracolumbar region; M51.47 Schmorl's nodes, lumbosacral region; M25.78 Osteophyte, vertebrae; D18.09 Hemangioma of other sites; Z68.22 Body mass index [BMI] 22.0-22.9, adult
CPT/HCPCS: 72148